=== PATIENT | male | born 1970 | race Caucasian/White ===

== ENCOUNTER 2022-06-15 17:25 | Emergency (ER) | payer OTHER ==
[2022-06-15 17:30] VITALS: BP 121/73; PULSE 75; RESP 20; TEMP 98.4
[2022-06-15] MEDS ORDERED: KETOROLAC 15 MG/ML 1 ML VIAL IM STA (18:05)
[2022-06-15] MEDS ORDERED: ORPHENADRINE 30 MG/ML 2 ML VIAL IM STA (18:05)
[2022-06-15] MEDS ORDERED: HYDROmorphone 0.5 MG/0.5 ML SYRINGE IM STA (18:06)
[2022-06-15] MEDS ORDERED: ACET/COD 300 MG/30 MG STARTER PACK 6 TAB BTL PO STA (18:06)
--- NOTE | 2022-06-15 18:11 | ED ---
General Adult HPI - General Chief complaint: Back Pain/Injury Stated complaint: back pain Time Seen by Provider: 06/15/22 17:55 Source: patient, RN notes reviewed, old records reviewed Mode of arrival: ambulatory Limitations: no limitations - History of Present Illness Initial comments: This is a 52-year-old male who comes in Any of right lower back pain. Patient states he twisted and all of a sudden he had quite a bit of pain in the right lower back. Patient states he then went to a chiropractor initially felt a little bit better but later in the day got considerably worse per patient states the pain now is about twice as before. Patient denies any urinary cons urinary retention. Patient denies any radiation of the pain. Patient states this happened back in November and he was here and had an x-ray at that time and the pain is exactly as it was before. Patient denies any dysuria hematuria urinary frequency. Patient denies any recent injury or trauma - Related Data Previous Rx's Medication Instructions Recorded Cyclobenzaprine [Flexeril] 10 mg PO TID PRN #15 tab 11/09/21 Ibuprofen [Motrin] 600 mg PO Q8HR PRN #30 tab 11/09/21 Triamcinolone 0.1% Cream [Kenalog 1 applicatio TOPICAL BID #30 gram 11/09/21 0.1% Cream] predniSONE 50 mg PO DAILY #5 tab 11/09/21 Cyclobenzaprine [Flexeril] 10 mg PO TID #20 tab 06/15/22 Ketorolac [Toradol] 10 mg PO Q6HR #15 tab 06/15/22 Allergies Allergy/AdvReac Type Severity Reaction Status Date / Time No Known Allergies Allergy Verified 06/15/22 17:30 Review of Systems ROS Statement: Those systems with pertinent positive or pertinent negative responses have been documented in the HPI. ROS Other: All systems not noted in ROS Statement are negative. Past Medical History Additional Past Medical History / Comment(s): Back pain History of Any Multi-Drug Resistant Organisms: None Reported Past Surgical History: No Surgical Hx Reported Past Psychological History: No Psychological Hx Reported Smoking Status: Current every day smoker Past Alcohol Use History: None Reported Past Drug Use History: None Reported General Exam - General Exam Comments Initial Comments: GENERAL Patient is well-developed and well-nourished. Patient is in mild distress. EYES Patient's pupils are equal and round. Extraocular motion is intact SKIN Unremarkable NEURO The patient is alert and oriented 3 PYSCH Patient has normal interpersonal interactions. MUSCULOSKELETAL Patient has full range of motion of all 4 extremities. Patient's lower right lower back is painful to palpation. Patient is normal sensation and normal strength both legs. Limitations: no limitations Course Vital Signs 06/15/22 17:26 Temperature 98.4 F Pulse Rate 75 Respiratory 20 Rate Blood Pressure 121/73 O2 Sat by Pulse 98 Oximetry Medical Decision Making - Medical Decision Making I reviewed the patient's old ER chart as well as the old x-rays. The patient received Toradol and Norflex and Dilaudid emergency department. Disposition Clinical Impression: Lumbar spine strain Disposition: HOME SELF-CARE Instructions (If sedation given, give patient instructions): Acute Low Back Pain (ED) Additional Instructions: Patient should take the Tylenol with Codeine 1 pill at night to help with sleep. Prescriptions: Cyclobenzaprine [Flexeril] 10 mg PO TID #20 tab Ketorolac [Toradol] 10 mg PO Q6HR #15 tab Is patient prescribed a controlled substance at d/c from ED?: No Referrals: None,Stated [Primary Care Provider] - 1-2 days Time of Disposition: 18:10
== END 2022-06-15 18:59 | disposition home or self-care (01) ==
LOC: EC 17:25
DX: S39.012A Strain of muscle, fascia and tendon of lower back, initial encounter (principal); F17.200 Nicotine dependence, unspecified, uncomplicated; X58.XXXA Exposure to other specified factors, initial encounter
CPT/HCPCS: 99283; 96372 ×3; J2360; J1885; J1170

== ENCOUNTER 2023-05-27 06:24 | Emergency (ER) | payer BC, OTHER ==
[2023-05-27 06:33] VITALS: BP 129/79; PULSE 76; RESP 18; TEMP 98
[2023-05-27] MEDS ORDERED: IBUPROFEN 800 MG TAB PO STA (06:59)
[2023-05-27] MEDS ORDERED: LIDOCAINE 5% PATCH TOPICAL SCH ×2 (07:30→09:00)
--- NOTE | 2023-05-27 07:41 | ED ---
General Adult HPI - General Chief complaint: Extremity Problem,Nontraumatic Stated complaint: left elbow pain Time Seen by Provider: 05/27/23 06:42 Source: patient, RN notes reviewed Mode of arrival: ambulatory Limitations: no limitations - History of Present Illness Initial comments: 53-year-old female with no significant past medical history presents the emergency department with a chief complaint of left elbow pain. Patient reports that the pain that he describes as a constant dull ache that will occasionally be sharp the last few weeks. He denies any known trauma or injury however he does report having some neck pain. She has not been taking anything at home for his symptoms. He does report having generalized tingling sensation in his fingers however he endorses likely secondary to pain - Related Data Previous Rx's Medication Instructions Recorded Cyclobenzaprine [Flexeril] 10 mg PO TID PRN #15 tab 11/09/21 Ibuprofen [Motrin] 600 mg PO Q8HR PRN #30 tab 11/09/21 Triamcinolone 0.1% Cream [Kenalog 1 applicatio TOPICAL BID #30 gram 11/09/21 0.1% Cream] predniSONE 50 mg PO DAILY #5 tab 11/09/21 Cyclobenzaprine [Flexeril] 10 mg PO TID #20 tab 06/15/22 Ketorolac [Toradol] 10 mg PO Q6HR #15 tab 06/15/22 Ibuprofen [Motrin] 800 mg PO Q8HR PRN #30 tab 05/27/23 Lidocaine 5% Patch [Lidoderm 5% 1 patch TOPICAL DAILY #5 patch 05/27/23 Patch] Allergies Allergy/AdvReac Type Severity Reaction Status Date / Time No Known Allergies Allergy Verified 05/27/23 06:33 Review of Systems ROS Statement: Those systems with pertinent positive or pertinent negative responses have been documented in the HPI. ROS Other: All systems not noted in ROS Statement are negative. Past Medical History Additional Past Medical History / Comment(s): Back pain History of Any Multi-Drug Resistant Organisms: None Reported Past Surgical History: No Surgical Hx Reported Past Psychological History: No Psychological Hx Reported Smoking Status: Current every day smoker Past Alcohol Use History: None Reported Past Drug Use History: None Reported General Exam - General Exam Comments Initial Comments: General: Alert, in no acute distress Head: atraumatic normocephalic. Eyes PERRL, EOMI intact, mucous membranes moist Respiratory: Lungs clear to auscultation bilaterally Cardiovascular: Heart rate regular rate and Abdominal: Soft without guarding or rebound Extremities: Normal inspection with full range of motion and normal capillary refill, and she left radial region of wrist, distal neurovascularly intact. Sensation and strength equal bilaterally Neuroogic: alert and oriented 3, CN II-XII intact, able to ambulate with steady gait Skin: warm dry and intact with normal color Limitations: no limitations Course Vital Signs 05/27/23 06:26 Temperature 98.0 F Pulse Rate 76 Respiratory 18 Rate Blood Pressure 129/79 O2 Sat by Pulse 99 Oximetry Medical Decision Making - Medical Decision Making Was pt. sent in by a medical professional or institution (, PA, [employer], urgent care, hospital, or longterm...) When possible be specific @ -[No] Did you speak to anyone other than the patient for history (EMS, parent, family, police, friend...)? What history was obtained from this source @ -[No] Did you review nursing and triage notes (agree or disagree)? Why? @ -[I reviewed and agree with nursing and triage notes] Were old charts reviewed (outside hosp., previous admission, EMS record, old EKG, old radiological studies, urgent care reports/EKG's, longterm records)? Report findings @ -[No old charts were reviewed] Differential Diagnosis (chest pain, altered mental status, abdominal pain women, abdominal pain men, vaginal bleeding, weakness, fever, dyspnea, syncope, headache, dizziness, GI bleed, back pain, seizure, CVA, palpatations, mental health, musculoskeletal)? @ -[not applicable] EKG interpreted by me (3pts min.). @ -[As above] X-rays interpreted by me (1pt min.). @ -X-ray neck does not reveal any evidence of fracture or dislocation. There is [id number] degenerative changes in the cervical spine X-ray of left elbow does not reveal any evidence of fracture dislocation CT interpreted by me (1pt min.). @ -[None done] U/S interpreted by me (1pt. min.). @ -[None done] What testing was considered but not performed or refused? (CT, X-rays, U/S, labs)? Why? @ -[None] What meds were considered but not given or refused? Why? @ -[None] Did you discuss the management of the patient with other professionals (professionals i.e. , PA, [employer], lab, RT, psych nurse, social work case manager, bottom ironer, teacher, ecological technical officer, ed case manager)? Give summary @ -[No] Was smoking cessation discussed for >3mins.? @ -[No] Was critical care preformed (if so, how long)? @ -[No] Were there social determinants of health that impacted care today? How? (Homelessness, low income, unemployed, alcoholism, drug addiction, transportation, low edu. Level, literacy, decrease access to med. care, longterm, rehab)? @ -[No] Was there de-escalation of care discussed even if they declined (Discuss DNR or withdrawal of care, Hospice)? DNR status @ -[No] What co-morbidities impacted this encounter? (DM, HTN, Smoking, COPD, CAD, Ca ncer, CVA, ARF, Chemo, Hep., AIDS, mental health diagnosis, sleep apnea, morbid obesity)? @ -[None] Was patient admitted / discharged? Hospital course, mention meds given and route, prescriptions, significant lab abnormalities, going to OR and other pertinent info. @ -Discharged. This is a pleasant 53-year-old male who presents the emergency department with left elbow pain. Patient has a history and physical exam performed. Exam unremarkable. Left elbow without marked erythema, edema or redness. Full range of motion. Patient given motrin and Lidoderm patches dramatic improvement. Provided prescription for Motrin 800 and Lidoderm patches. Patient provided starter pack of Tylenol 3's. Patient had x-rays which were negative. I discussed the results in detail with the patient verbalized understanding all questions were addressed. Recommend close follow- up with PCP in 1-2 days. Case discussed with GERARDO Suarez who agrees with plan of care Undiagnosed new problem with uncertain prognosis? @ -[No] Drug Therapy requiring intensive monitoring for toxicity (Heparin, Nitro, Insulin, Cardizem)? @ -[No] Were any procedures done? @ -[No] Diagnosis/symptom? @ -Left elbow pain vs. Tendinitis Acute, or Chronic, or Acute on Chronic? @ -Acute Uncomplicated (without systemic symptoms) or Complicated (systemic symptoms)? @ -Uncomplicated Side effects of treatment? @ -[No] Exacerbation, Progression, or Severe Exacerbation? @ -[No] Poses a threat to life or bodily function? How? (Chest pain, [place], [place], pneumonia, PE, COPD, DKA, ARF, appy, cholecystitis, CVA, Diverticulitis, Homicidal, Suicidal, threat to staff... and all critical care pts) @ -Low likelihood Disposition Clinical Impression: Tendinitis, Left elbow pain Disposition: HOME SELF-CARE Condition: Stable Instructions (If sedation given, give patient instructions): Arthralgia (ED), Tendinitis (ED) Additional Instructions: Please take Motrin and apply numbing patches when able Please apply ice or heat for 15 minutes at a time These return to the nearest emergency department if symptoms worsen or persist Prescriptions: Lidocaine 5% Patch [Lidoderm 5% Patch] 1 patch TOPICAL DAILY #5 patch Ibuprofen [Motrin] 800 mg PO Q8HR PRN #30 tab PRN Reason: Pain Is patient prescribed a controlled substance at d/c from ED?: No Referrals: None,Stated [Primary Care Provider] - 1-2 days Pham Francois DO [Doctor of Osteopathic Medicine] - 1-2 days Forms: PH Area PCPs Time of Disposition: 08:08
--- NOTE | 2023-05-27 08:01 | XR ---
EXAMINATION TYPE: XR cervical spine comp DATE OF EXAM: 05/27/2023 7:22 AM CLINICAL INDICATION:Male, 53 years old with history of neck pain; [facility] COMPARISON: None TECHNIQUE: The cervical spine was imaged in frontal, lateral, odontoid and bilateral oblique. FINDINGS: The osseous structures show normal alignment without evidence of an acute fracture. There is mild/mod erate degenerative disc disease at the C3-C4 and C4-C5 levels, with mild disc space narrowing and pre dominantly anterior marginal osteophytes. Mild narrowing of the bilateral C3-C4, C4-C5, C5-C6 neural foramina. Soft tissues appear unremarkable. IMPRESSION: 1. No evidence of acute fracture or dislocation. 2. Mild degenerative disc disease changes of the cervical spine.
--- NOTE | 2023-05-27 08:03 | XR ---
EXAMINATION TYPE: XR elbow complete LT DATE OF EXAM: 05/27/2023 7:22 AM CLINICAL INDICATION:Male, 53 years old with history of neck and left elbow pain; [facility] COMPARISON: None TECHNIQUE: The left elbow was examined in AP, lateral, and oblique projections. FINDINGS: Osseous mineralization appears within normal limits. No evidence of acute fracture, disloca tion, or destructive bony lesion. Mild degenerative changes. No sizable elbow joint effusion. No radi opaque foreign body. IMPRESSION: Mild degenerative changes. No evidence of an acute osseous abnormality.
[2023-05-27] MEDS ORDERED: ACET/COD 300 MG/30 MG STARTER PACK 6 TAB BTL PO STA (08:07)
== END 2023-05-27 08:30 | disposition home or self-care (01) ==
LOC: EC 06:24
DX: M25.522 Pain in left elbow (principal); M77.8 Other enthesopathies, not elsewhere classified; F17.200 Nicotine dependence, unspecified, uncomplicated
CPT/HCPCS: 72050; 99283